=== PATIENT | male | born 1995 | race African-American/Black ===

== ENCOUNTER 2017-07-13 18:51 | Emergency (ER) | payer OTHER ==
[~2017-07-13] VITALS: Ht 175.3 cm; Wt 61.2 kg
[2017-07-13 19:44] VITALS: BP 123/80; Ht 175.3 cm; Wt 61.2 kg
== END 2017-07-13 21:46 | disposition left against medical advice (07) ==
LOC: ED 18:51
DX: Z53.21 Procedure and treatment not carried out due to patient leaving prior to being seen by health care provider (principal)